=== PATIENT | male | born 1955 | race Hispanic/Latino ===

== ENCOUNTER 2018-09-21 10:17 | Inpatient (IN) | payer MEDICARE, OTHER ==
[~2018-09-21] VITALS: Ht 172.7 cm; Wt 97.1 kg
--- OUTSIDE RECORDS SUMMARY | 2018-09-21 10:20 | XMS REPORT | Clinical Summary ---
Author Author Obi Osheaist Organization [facility] Address Unknown Phone Unavailable Care Team Providers Care Heel Padder Name Role Phone PCP Unavailable Allergies Not on File Medications Not on file Active Problems Not on file Encounters Care Team Description Date Type Specialty 01/13/2018 Clinical Corporate Wellness Support after 09/20/2017 Immunizations Name Dates Previously Given Next Due FLUCELVAX QUAD PF (0.5mL 01/13/2018 syringe) Social History Date Tobacco Use Types Packs/Day Years Used Never Assessed Sex Assigned at Date Recorded Not on file Industry Job Start Date Occupation Not on file Not on file Not on file Travel End Travel History Travel Start No recent travel history available. Last Filed Vital Signs Not on file Plan of Treatment Health Maintenance Due Date Last Done Comments COLONOSCOPY SCREENING 2003 SHINGLES VACCINES (#1) 2003 65+ PNEUMOCOCCAL VACCINE 2018 (1 of 2 - PCV13) INFLUENZA VACCINE 10/30/2018 01/13/2018 Results Not on fileafter 09/20/2017 Insurance Type Payer Benefit Subscriber ID Effective Phone Address Plan / Dates Group HMO/PPO [facility] xxxxxxxxx 2017-P THCARE resent CHOICE/CHO ICE + Advance Directives Patient has advance care planning documents on file. For more information, xu liao contact: Obi Haji [address] [place] [address]
--- OUTSIDE RECORDS SUMMARY | 2018-09-21 10:20 | XMS REPORT ---
Author [facility] Address Unknown Phone Unavailable Care Team Providers Care Transfer Worker Name Role Phone LA NENA TAYLOR Unavailable Unavailable Problems This patient has no known problems. Allergies, Adverse Reactions, Alerts This patient has no known allergies or adverse reactions. Medications This patient has no known medications. Results Test Description Test Time Test Comments Text Results Atomic Results Result Comments RAD, CHEST, 2 VIEWS 2018-06-16 11:37:00 Reason for Exam:->Z13.6 FINAL REPORT PA and Lateral views of the chest dated 06/16/2018 Clinical information: Z13.6 Comment: Heart is normal in size. Pulmonary vasculature is unremarkable. Lungs are clear. No pulmonary infiltrate or pleural effusion is present. Impression: No active cardiopulmonary disease. Signed: Frank Tucker Verified Date/Time: 06/16/2018 11:37:28 Reading Location: [facility] Radiology Reading Room ABDOMEN COMPLETE [facility] [address] [place] [address] Patient Name: ALBA RAMIREZ MR #: [id number] : 1955 Age/Sex: 61/M Req #: [id number] Adm Physician: Ordered by: LA NENA TAYLOR MD Report #: [id number] Location: US Room/Bed: Procedure: [id number] US/US ABDOMEN COMPLETE Exam Date: Exam Time: REPORT STATUS: Signed PROCEDURE: ABDOMINAL ULTRASOUND COMPARISON: None. INDICATIONS: Epigastric Pain FINDINGS: Montelongo scale and color flow Doppler ultrasound of the abdomen was performed. Liver: 15.8 cm span. No discrete mass or intrahepatic bile duct dilatation. Hyperechoic with coarse texture compatible with steatosis. Main portal vein 1.0 cm, normal hepatopedal flow. Spleen: 10.8 cm span, no splenomegaly. Biliary: No cholelithiasis or gallbladder wall thickening. Sonographic Ferreira sign negative. Common bile duct 0.5 cm, non-dilated. Pancreas: Partially obscured. Visualized portions unremarkable. Right kidney: 11.8 x 6.2 x 6.3 cm. No hydronephrosis. Normal cortical echogenicity. There are several hyperechoic foci related to the collecting system measuring up to 8 mm. Two cystic areas are noted measuring up to 1.6 cm containing echogenic foci. Left kidney: 12.9 x 6.5 x 6.5 cm. No hydronephrosis or contour deforming mass. Normal cortical echogenicity. Vessels: Aorta and IVC are partially obscured. Visualized portions unremarkable. Ascites: None CONCLUSION: 1. No cholelithiasis or sonographic evidence for acute cholecystitis. No dilatation of the biliary tree. 2. Echogenic foci in the right kidney may represent nonobstructing intrarenal calculi. There are 2 complicated right renal cysts with apparent calcifications. Correlation with abdominal CT may be helpful to characterize these findings. 3. Hepatic steatosis. Dictated by: Justin Wong M.D. on 12/21/2016 at 9:03 Electronically approved by: Justin Wong M.D. on 12/21/2016 at 9:03 Dictated By: JUSTIN WONG MD 2 Transcribed By: GAMAL on 12/21/16902 COPY TO: LA NENA FOUNTAIN MD
--- OUTSIDE RECORDS SUMMARY | 2018-09-21 10:20 | XMS REPORT | Clinical Summary ---
Author Author BRITTANY [employer] [facility] Address Unknown Phone Unavailable Care Team Providers Care Director Of Premium Seat Sales Name Role Phone Rachid Felix PCP Allergies Not on File Medications Not on file Active Problems Not on file Encounters Care Team Description Date Type Specialty Toney Flores MD Screening for ischemic heart disease 06/16/2018 Hospital Encounter Toney Flores MD Screening for ischemic heart disease (Primary Dx) 05/20/2018 Outside Orders Central Scheduling after 09/20/2017 Social History Date Tobacco Use Types Packs/Day Years Used Never Assessed Sex Assigned at Date Recorded Not on file Industry Job Start Date Occupation Not on file Not on file Not on file Travel End Travel History Travel Start No recent travel history available. Last Filed Vital Signs Not on file Plan of Treatment Not on file Procedures Comments Procedure Name Priority Date/Time Associated Diagnosis XR CHEST 2 VIEWS Routine 06/16/2018 Screening for ischemic 11:23 AM CDT heart disease after 09/20/2017 Results * XR Chest 2 Views (06/16/2018 11:23 AM CDT) Specimen Narrative Performed At FINAL REPORT [facility] PA and Lateral views of the chest dated 06/16/2018 Clinical information: Z13.6 Comment:Heart is normal in size. Pulmonary vasculature is unremarkable. Lungs are clear. No pulmonary infiltrate or pleural effusion is present. Impression:No active cardiopulmonary disease. Signed: Frank Tucker MD Report Verified Date/Time:06/16/2018 11:37:28 Reading Location: [facility] Radiology Reading Room Procedure Note Interface, External Ris In - 06/16/2018 11:39 AM CDT FINAL REPORT PA and Lateral views of the chest dated 06/16/2018 Clinical information: Z13.6 Comment: Heart is normal in size. Pulmonary vasculature is unremarkable. Lungs are clear. No pulmonary infiltrate or pleural effusion is present. Impression: No active cardiopulmonary disease. Signed: Frank Tucker MD Report Verified Date/Time: 06/16/2018 11:37:28 Reading Location: [facility] Radiology Reading Room Performing Organization Address City/State/Zipcode Phone Number GE RIS after 09/20/2017 Insurance Payer Benefit Subscriber ID Type Phone Address Plan / Group [facility] PPO xxxxxxxxx PPO CARE POS CVCP ONLY
[2018-09-21] MEDS ORDERED: SODIUM CHLORIDE 0.9% 1000ML 1,000 ML IV ONE (10:30)
[2018-09-21] MEDS ORDERED: ONDANSETRON HCL INJ 2MG/ML 2ML 2 MG/ML VIAL IV ONE (11:00)
[2018-09-21] MEDS ORDERED: MORPHINE SULFATE INJ 4 MG/ML INJ 1ML IV ONE ×2 (11:00→13:00)
[2018-09-21 12:12] LABS: HEMATOCRIT 40.5 % (38.2-49.6); MEAN CORPUSCULAR HEMOGLOBIN 30.8 pg (28-32); MEAN CORPUSCULAR HGB CONC 35.3 g/dL (31-35); MEAN CORPUSCULAR VOLUME 87.3 fL (81-99); PLATELET COUNT 114 x10e3/uL (140-360); RED BLOOD COUNT 4.64 x10e6/uL (4.3-5.7); RED CELL DISTRIBUTION WIDTH 13.3 % (11.7-14.4)
[2018-09-21 12:17] LABS: ALANINE AMINOTRANSFERASE 35 IU/L (0-55); ALBUMIN 4.4 g/dL (3.5-5.0); ALBUMIN/GLOBULIN RATIO 0.9 (0.8-2.0); ALKALINE PHOSPHATASE 61 IU/L (40-150); ANION GAP 19.7 mmol/L (8-16); BLOOD UREA NITROGEN 8 mg/dL (7-26); BUN/CREATININE RATIO 9 (6-25); CALCIUM 9.5 mg/dL (8.4-10.2); CARBON DIOXIDE 17 mmol/L (22-29); CHLORIDE 104 mmol/L (98-107); CREATININE, SERUM 0.85 mg/dL (0.72-1.25); EST GLOMERULAR FILTRATION RATE > 60 ML/MIN (60-); GLUCOSE 212 mg/dL (74-118); POTASSIUM 3.7 mmol/L (3.5-5.1); SODIUM 137 mmol/L (136-145)
[2018-09-21 12:24] LABS: HEMOGLOBIN 14.3 g/dL (14.0-18.0)
[2018-09-21] MEDS ORDERED: SODIUM CHLORIDE 0.9% 1000ML 2,000 ML IV ONE (13:00)
[2018-09-21] MEDS ORDERED: DICYCLOMINE HCL 20 MG/2 ML VIAL IM ONE (13:00)
[2018-09-21 13:02] LABS: LIPASE 1674 U/L (8-78)
--- NOTE | 2018-09-21 14:18 | Diagnostic Imaging Report ---
EXAMINATION: CT of the abdomen and pelvis with contrast. TECHNIQUE: Spiral CT images of the abdomen and pelvis were performed from the lung bases to the lesser trochanters after the intravenous administration of 100 cc of Isovue 370 and the oral administration of water. Coronal and sagittal reformatted images were obtained. COMPARISON: None. CLINICAL HISTORY:Periumbilical abdominal pain DISCUSSION: ABDOMEN/PELVIS: LOWER THORAX:Linear atelectatic changes in the lingula and posterior left lower lobe. Minimal atherosclerotic calcification of the coronary arteries. HEPATOBILIARY: Mild hepatomegaly measuring 17 cm in the right mid clavicular line. Diffusely decreased attenuation of the hepatic parenchyma compared to the spleen, consistent with steatosis. No focal lesions. No intra or extrahepatic biliary ductal dilation. GALLBLADDER: No radio-opaque stones or sludge. No wall thickening. SPLEEN: No splenomegaly. PANCREAS: Mild peripancreatic fat stranding involving the pancreatic body and tail (for example series 2, image 32-36), with associated mild thickening of the right anterior pararenal fascia (series 2, image 37 and sagittal image 86).. Normal pancreatic parenchymal enhancement. No focal lesions or ductal dilation. ADRENALS: No adrenal nodules. KIDNEYS/URETERS: 8 mm nonobstructing calculus in the left interpolar region (series 2, image 38). 2-3 mm nonobstructing calculus in the right mid to inferior aspect (2, image 43). No ureteral calculi, hydronephrosis or obstruction. Multiple cortical scars are noted in the right kidney, with several punctate cortical calcifications, likely sequela of prior inflammation or infection (for example series 2, image 35). 1.7 cm fluid density simple cyst in the interpolar right kidney (series 2, image 45). Multiple subcentimeter hypodensities in the right kidney, which are too small to characterize but likely represent small cysts. No solid enhancing masses. PELVIC ORGANS/BLADDER: Bladder is unremarkable. Dystrophic calcifications in the prostate. PERITONEUM/RETROPERITONEUM: No free air or fluid. LYMPH NODES: No intra-abdominal, retroperitoneal, pelvic or inguinal lymphadenopathy. VESSELS: The celiac trunk,superior and inferior mesenteric and bilateral renal arteries are patent The portal, superior mesenteric and splenic veins are patent. GI TRACT: No bowel dilation or evidence of obstruction. High density material in the distal ileus may represent ingestion of bismuth containing antacids. Appendix is well identified and normal in caliber. BONES AND SOFT TISSUE: No aggressive lesions. Degenerative disc changes in the lower thoracic and to a lesser degree lumbosacral spine. Facet hypertrophy L4-L5 and L5-S1. Small fat-containing umbilical hernia. IMPRESSION: 1. Findings likely represent mild acute interstitial edematous pancreatitis involving the pancreatic body and tail in the appropriate clinical setting. Correlate with serum lipase. No acute peripancreatic fluid collections or evidence of necrosis. 2. Mild hepatomegaly with diffuse fatty infiltration. 3. Bilateral nonobstructing calculi, as described. No ureteral calculi, hydronephrosis or obstruction. Signed by: Dr. Abel Méndez M.D. on 09/21/2018 2:15 PM
[2018-09-21 14:29] LABS: LYMPHOCYTES % (MANUAL) 17 % (19-48); MONOCYTES % (MANUAL) 3 % (3.4-9.0); NEUTROPHILS % (MANUAL) 80 % (40-74)
[2018-09-21 14:30] LABS: PLATELET ESTIMATE SLIGHTLY DECREASED; PLATELET MORPHOLOGY COMMENT NORMAL; RBC MORPHOLOGY COMMENT NORMAL
[2018-09-21] MEDS ORDERED: SODIUM CHLORIDE 0.9% 1000ML 1,000 ML IV SCH (15:04)
[2018-09-21] MEDS ORDERED: SODIUM CHLORIDE FLUSH 10 ML SYR INJ PRN (15:15)
[2018-09-21] MEDS ORDERED: ONDANSETRON HCL INJ 2MG/ML 2ML 2 MG/ML VIAL IV PRN (15:15)
--- OUTSIDE RECORDS SUMMARY | 2018-09-21 15:21 | XMS REPORT | Clinical Summary ---
Author Author Obi Osheaist Organization [facility] Address Unknown Phone Unavailable Care Team Providers Care Paper Steamer Name Role Phone PCP Unavailable Allergies Not [...] Phone Address Plan / Dates Group HMO/PPO [facility] xxxxxxxxx 2017-P THCARE resent CHOICE/CHO ICE + Advance Directives Patient has advance care planning documents on file. For more information, xu liao contact: Obi Haji [address] [place] [address]
--- OUTSIDE RECORDS SUMMARY | 2018-09-21 15:21 | XMS REPORT | Clinical Summary ---
Author Author BRITTANY [employer] Organization [email or web address] Address Unknown Phone Unavailable Care Team Providers Care Collections Analyst Name Role Phone Rachid Felix PCP Allergies [...] CDT) Specimen Narrative Performed At FINAL REPORT [facility] PA and Lateral views of the chest dated 06/16/2018 Clinical information: Z13.6 Comment:Heart is normal in size. Pulmonary vasculature is unremarkable. Lungs are clear. No pulmonary infiltrate or pleural effusion is present. Impression:No active cardiopulmonary disease. Signed: Frank Tucker MD Report Verified Date/Time:06/16/2018 11:37:28 Reading Location: [facility] Radiology Reading Room Procedure Note Interface, External [...] 11:37:28 Reading Location: [facility] [place] Radiology Reading Room Performing Organization Address City/State/Zipcode Phone Number GE RIS after 09/20/2017 Insurance Payer Benefit Subscriber ID Type Phone Address Plan / Group [facility] SHELL PPO xxxxxxxxx PPO CARE POS CVCP ONLY
--- NOTE | 2018-09-21 15:23 | NUR ---
DR. ADAMES AT BEDSIDE, UPDATING PATIENT ON RESULTS AND LETTING HIM KNOW HE WILL BE ADMITTED
--- NOTE | 2018-09-21 15:29 | NUR ---
REPORT TO NATALIE Ashraf
--- NOTE | 2018-09-21 15:30 | NUR ---
REPORT RECEIVED FROM MELA BYRD. PT RESTING IN BED BREATHING EVEN/UNLABORED, NAD NOTED, DENIES PAIN AT THIS TIME, STATES "THAT BENTYL SHOT REALLY HELPED". NO NEEDS VOICED AT THIS TIME. UPDATED ON PLAN OF CARE AND AWAITING BED FOR ADMISSION. PT VERBALIZES UNDERSTANDING ON PLAN OF CARE AT THIS TIME.
[2018-09-21] MEDS ORDERED: MORPHINE SULFATE INJ 4 MG/ML INJ 1ML IV PRN (16:00)
[2018-09-21 17:00] VITALS: BP 139/71
[2018-09-21 17:36] VITALS: BP 139/71
[2018-09-21] MEDS: FAMOTIDINE 20 MG/2 ML VIAL IV SCH (17:55)
[2018-09-21] MEDS ORDERED: NORVASC5 MG PO (18:02)
[2018-09-21] MEDS ORDERED: RAMIPRIL5 MG PO (18:02)
[2018-09-21] MEDS ORDERED: IOPAMIDOL 370 MG/ML 200 ML INFUS..BTL INJ ONE (18:18)
[2018-09-21] MEDS ORDERED: SODIUM CHLORIDE 0.9% 50ML 50 ML ONE (18:19)
--- NOTE | 2018-09-21 19:00 | NUR ---
patient received awake, alert, lying quietly in bed. ivf continue to infuse without difficulty. pm assessment complete. patient instructed to call for assistance when needed.
--- NOTE | 2018-09-21 19:20 | NUR ---
patient medicated with morphine 4mg and zofran 4mg ivp for c/o abd pain 10/08 at this time.
[2018-09-21 19:30] VITALS: BP 132/81
[2018-09-21 20:55] VITALS: BP 132/81
[2018-09-21] MEDS: SODIUM CHLORIDE 0.9% 1000ML 1,000 ML IV SCH (23:44)
[2018-09-22] VITALS (8 sets, daily range): BP systolic 134–141; BP diastolic 61–81
[2018-09-22] MEDS: SODIUM CHLORIDE 0.9% 1000ML 1,000 ML IV SCH ×5 (04:54→21:10)
--- NOTE | 2018-09-22 06:00 | NUR ---
patient appears to be resting quietly. no further c/o pain noted throughout the night. ivf continue to infuse without difficulty.
[2018-09-22 06:22] LABS: BASOPHILS % 0.3 % (0.0-1.0); EOSINOPHILS % 0.3 % (0.0-6.0); HEMATOCRIT 38.6 % (38.2-49.6); HEMOGLOBIN 13.1 g/dL (14.0-18.0); LYMPHOCYTES % 18.9 % (18.0-39.1); MEAN CORPUSCULAR HEMOGLOBIN 30.5 pg (28-32); MEAN CORPUSCULAR HGB CONC 33.9 g/dL (31-35); MONOCYTES # (AUTO) 0.5 (0.2-0.8); MONOCYTES % 5.2 % (4.4-11.3); NEUTROPHILS # (AUTO) 7.8 (2.1-6.9); PLATELET COUNT 141 x10e3/uL (140-360); RED BLOOD COUNT 4.29 x10e6/uL (4.3-5.7); RED CELL DISTRIBUTION WIDTH 13.8 % (11.7-14.4)
[2018-09-22 06:43] LABS: ALANINE AMINOTRANSFERASE 26 IU/L (0-55); ALBUMIN 3.3 g/dL (3.5-5.0); ALBUMIN/GLOBULIN RATIO 1.1 (0.8-2.0); ALKALINE PHOSPHATASE 48 IU/L (40-150); ANION GAP 12.8 mmol/L (8-16); BLOOD UREA NITROGEN 6 mg/dL (7-26); BUN/CREATININE RATIO 6 (6-25); CALCIUM 8.5 mg/dL (8.4-10.2); CARBON DIOXIDE 22 mmol/L (22-29); CHLORIDE 108 mmol/L (98-107); CHOLESTEROL 127 MD/DL (0-199); CREATININE, SERUM 0.99 mg/dL (0.72-1.25); EST GLOMERULAR FILTRATION RATE > 60 ML/MIN (60-); GLUCOSE 124 mg/dL (74-118); HDL CHOLESTEROL 21 MG/DL (40-60); MAGNESIUM 1.6 MG/DL (1.3-2.1); POTASSIUM 3.8 mmol/L (3.5-5.1); SODIUM 139 mmol/L (136-145); TRIGLYCERIDES 512 MG/DL (0-149)
--- NOTE | 2018-09-22 06:56 | NUR ---
RECEIVED PATIENT RESTING IN BED. RESPIRATIONS EVEN AND UNLABORED, NO ACUTE DISTRESS NOTED. DENIES PAIN OR DISCOMFORT. CALL LIGHT WITHIN REACH. BED IN THE LOWEST POSITION.
[2018-09-22 07:37] LABS: AMYLASE 401 U/L (25-125); LIPASE 1091 U/L (8-78)
[2018-09-22] MEDS: FAMOTIDINE 20 MG/2 ML VIAL IV SCH ×2 (08:28→17:10)
[2018-09-22] MEDS ORDERED: FENTANYL CITRATE/PF 100MCG/2 ML INJ ONE (10:52)
--- NOTE | 2018-09-22 18:50 | NUR ---
REPORT GIVEN TO ONCOMING NURSE, WALKING ROUNDS DONE. PATIENT IS RESTING IN BED. NO ACUTE DISTRESS NOTED. NO PAIN NOTED AT THIS TIME. FAMILY MEMBER AT BEDSIDE. CALL LIGHT WITHIN REACH. BED IN THE LOWEST POSITION.
--- NOTE | 2018-09-22 19:00 | NUR ---
patient received awake, alert, lying quietly in bed. no c/o pain noted at this time. ivf continue to infuse without difficulty. patient requesting food. patient instructed of npo status and the reason for it. patient verbalizes understanding of this. pm assessment complete. noted at the bedside. patient/ instructed to call for assistance when needed.
[2018-09-23] VITALS (9 sets, daily range): BP systolic 124–180; BP diastolic 66–92
[2018-09-23] MEDS: SODIUM CHLORIDE 0.9% 1000ML 1,000 ML IV SCH ×6 (01:20→22:29)
--- NOTE | 2018-09-23 06:50 | NUR ---
RECEIVED PATIENT RESTING IN BED. NO ACUTE DISTRESS NOTED. DENIES PAIN OR DISCOMFORT AT THIS TIME. CALL LIGHT WITHIN REACH. BED IN THE LOWEST POSITION.
[2018-09-23] MEDS: FAMOTIDINE 20 MG/2 ML VIAL IV SCH ×2 (07:52→16:02)
--- NOTE | 2018-09-23 14:54 | NUR ---
DISCUSSED IN BARRIER ROUNDS, AMI AND LIPASE DECREASING PLAN IS TO CONTINUE CARE UNTIL IN NORMAL RANGE. LIVES AT HOME WITH DEE WOLFE [phone]
--- NOTE | 2018-09-23 19:21 | NUR ---
REPORT GIVEN TO ONCOMING NURSE, WALKING ROUNDS DONE. PATIENT IS RESTING IN BED. NO ACUTE DISTRESS NOTED. NO S/S OF PAIN NOTED AT THIS TIME. CALL LIGHT WITHIN REACH. BED IN THE LOWEST POSITION.
--- NOTE | 2018-09-23 20:55 | NUR ---
PATIENT CONDITION STABLE WITHOUT RESPIRATORY DISTRESS, HE DENIES ABDOMINAL PAIN. HE HAS A HISTORY OF DIABETES, BLOOD SUGAR ASSESSED SINCE THE HE'S IS ON NPO STATUS, READING WAS 89. WILL NOTIFY DR Kodi BOYCE WHEN HE MAKES ROUNDS TO SEE IF HE WANTS TO CHANGE THE IV FLUID.
--- NOTE | 2018-09-23 23:56 | NUR ---
DR Kodi BOYCE SAW THE PATIENT, HE WAS MADE AWARE THAT THE PATIENT'S BLOOD SUGAR READING WAS 89 AND HE'S ON NPO STATUS. ORDER RECEIVED TO CHANGE THE IV FLUID TO D5LR AT A RATE OF 125ML/HR.
[2018-09-24] VITALS (7 sets, daily range): BP systolic 136–158; BP diastolic 74–87
[2018-09-24] MEDS: DEXTROSE 5%/LACTATED RINGERS 1,000 ML IV SCH ×2 (00:17→19:30)
--- NOTE | 2018-09-24 03:13 | NUR ---
WALKING ROUNDS MADE, PATIENT OBSERVED SOUNDLY ASLEEP WITHOUT DISTRESS.
[2018-09-24 06:04] LABS: AMYLASE 121 U/L (25-125); LIPASE 251 U/L (8-78)
[2018-09-24] MEDS: FENOFIBRATE 145 MG TAB PO SCH (06:18)
--- NOTE | 2018-09-24 07:20 | NUR ---
REC'D PATIENT AAOX3, ON ROOM AIR, NO S/S OF DISTRESS. D5 LR RUNNING AT 125 ML/HR, RIGHT AC 20 GAUGE IS CLEAN AND INTACT. SIDE RAILS UPX2, CALL HERNANDEZ WITHIN REACH, AND BED IN LOWEST POSITION.
[2018-09-24] MEDS: FAMOTIDINE 20 MG/2 ML VIAL IV SCH (08:43)
--- NOTE | 2018-09-24 16:08 | NUR ---
Nutrition Screen Note RD Recommendation for Physician: -Advance diet as tolerated to low fat/ cardiac diet Plan of Care: RD following, monitoring for tolerance and adequacy, diet education Nutrition reason for involvement: MD Consult elevated TG Primary Diagnose(s): Acute pancreatitis PMH: CAD, HTN Ht: 68in Wt:215.13lb BMI: 32.7kg/m2 IBW: 154lb RD Assessment: (09/24) Chart reviewed. Labs and meds reviewed. 63yo M, who was admitted for pancreatitis. Lipase has trend down. TG at 306. Visited pt in the room. Pt tolerating clear liquid diet. No complains of nausea or vomiting. Normal BM. Pt denies any chewing or swallowing difficulty. RD provided education on low fat diet and pt was agreeable. All questions have been answered. Current Diet: clear liquid diet Malnutrition Evaluation (09/24/2018) The patient does not meet criteria for a specified degree of malnutrition at this time. Will re-evaluate at follow-up as appropriate. Diet Education Needs Assessment: Diet education indicated, pt was agreeable. Learner(s): pt Time spent: 45minutes Barriers: physical inactivity Cultural/Language Modifications: No cultural/language modifications noted. Pt speaks Azeri. Readiness: eager Method: explanation/ discussion, handout Topics: pancreatitis/ low fat diet therapy Understanding/Compliance: Expect good understanding/compliance from pt. Will benefit from reinforcement. All questions have been answered. Nutrition Care Level: low Signed: Ashley Graves, MS, RD, LD
[2018-09-24] MEDS ORDERED: ONDANSETRON HCL 4 MG ORAL DISINTEGRATING TAB PO PRN (16:45)
--- NOTE | 2018-09-24 18:23 | NUR ---
PATIENT IS SITTING AT THE EDGE OF THE BED. NO S/S OF DISTRESS. CALL HERNANDEZ WITHIN REACH, BED IN LOWEST POSITION, AND SIDE RAILS UP X2.
--- NOTE | 2018-09-24 19:20 | NUR ---
Patient visited in room during nursing rounds. Patient alert and oriented x3. No distress or discomfort noted. On IVF (D5LR at 125ml/hr). Pt ambulatory in room prn. On clear liquid diet. Pt states he wants to go home tomorrow. Call grider within reach. Will monitor closely.
[2018-09-24] MEDS: FAMOTIDINE 20 MG TAB PO SCH (21:18)
--- NOTE | 2018-09-24 22:00 | NUR ---
Spoke with Dr. Gennaro Hugo on the phone to report about dietary recommendation of advancing patient's diet as tolerated to low fat/cardiac diet. MD aware and stated to keep pt clear liquid diet for now since last lipase level still elevated. MD stated if lipase level normalizes tomorrow (09/25/18), diet will be advanced to soft diet.
[2018-09-25] VITALS: BP 130/67
--- NOTE | 2018-09-25 | NUR ---
Dr. Gennaro Hugo came and visited pt in room. MD aware of pt condition and informed pt of plan of care. Pt still on Clear liquid diet at this time.
[2018-09-25] MEDS: DEXTROSE 5%/LACTATED RINGERS 1,000 ML IV SCH ×3 (03:31→15:34)
[2018-09-25 04:00] VITALS: BP 132/74
[2018-09-25] MEDS: FENOFIBRATE 145 MG TAB PO SCH (05:46)
[2018-09-25 07:19] LABS: LIPASE 139 U/L (8-78); TRIGLYCERIDES 187 MG/DL (0-149)
[2018-09-25 07:51] VITALS: BP 138/78
[2018-09-25] MEDS: FAMOTIDINE 20 MG TAB PO SCH (08:34)
--- NOTE | 2018-09-25 09:00 | NUR ---
The pt. was received in bed awake alert and oriented times 4. He denies pain or discomfort at this time and diet change is pending morning labs. Amylase lipase continues to trend downwards and the pt. allowed diet change.
[2018-09-25 15:57] VITALS: BP 159/77
--- NOTE | 2018-09-25 16:14 | NUR ---
CM MET W THE PT AT THE BEDSIDE. PT ASKED IF HE COULD DC AFTER DINNER IF HE TOLERATES IT WELL. CM WILL INFORM BEDSIDE NURSE;
--- NOTE | 2018-09-25 16:28 | NUR ---
The pt. reports that his spouse is going out of town tomorrow and he will not have a ride home. He requests that the drIvana be called for discharge order from the drIvana's.
--- NOTE | 2018-09-25 19:12 | NUR ---
Patient visited in room during nursing rounds. Patient aware he's being discharged as per order from Dr. Gennaro Hugo and Dr. Alcantara. Patient signed discharge papers and agree to plan to follow up with Dr. Gennaro Hugo in 2 weeks.
--- NOTE | 2018-09-25 19:20 | NUR ---
Patient escorted downstairs. Patient left unit in stable condition and denies any pain or discomfort. Patient went home via private vehicle with (Jazz).
--- NOTE | 2018-09-27 04:02 | Discharge Summary ---
DISCHARGE DIAGNOSES: 1. Acute pancreatitis. 2. Hypertriglyceridemia. HISTORY OF PRESENT ILLNESS: The patient is a 63-year-old gentleman, who presented with abdominal pain, severe in nature, where he was found on CT scan as well as laboratory data to have acute pancreatitis. So, he was brought in and placed on IV fluids, n.p.o. status, where he made daily improvements both in exam as well as in his chemistries. Laboratory data reviewed. Triglycerides in the 600 range. So, he was started on some triglyceride medicine. At Discharge his triglycerides were around 300. Over 24 hours prior to discharge, he was able to ambulate well. He has had very good pain control and also was able to tolerate initially a clear liquid diet and then a soft diet without any issues. The patient was discharged home to follow up with his PCP, Dr. Felix in 2 weeks and continue low-fat diet and getting his triglycerides under control. Please see hospital chart for full details. MD ALVINA Lee/EFRAIN /[id number] cc: Rachid Felix MD
== END 2018-09-25 19:33 | disposition home or self-care (01) | DRG 440 ==
LOC: ER 10:17 → ERHOLD 15:17 → MED/SURG3 17:03
PROVIDERS: ADMIT Internal Medicine; ATTEND Internal Medicine
DX: K85.80 Other acute pancreatitis without necrosis or infection (principal); E78.1 Pure hyperglyceridemia; I10 Essential (primary) hypertension; E11.9 Type 2 diabetes mellitus without complications; K76.0 Fatty (change of) liver, not elsewhere classified; G47.30 Sleep apnea, unspecified; Z82.49 Family history of ischemic heart disease and other diseases of the circulatory system; K21.9 Gastro-esophageal reflux disease without esophagitis; E66.9 Obesity, unspecified; Z68.32 Body mass index [BMI] 32.0-32.9, adult
CPT/HCPCS: 36415; 74177; 80053; 80061; 82150; 82948; 83036; 83690; 83735; 84100; 84478; 84484; 85007; 85025; 85027; 93005; 99284; J0500; J2270; J2405; J3010; J7030; Q9967

== ENCOUNTER → 2020-05-03 | Day surgery (SDC) | payer MEDICARE, OTHER ==
[~2020-05-03] MED LIST: NORVASC5 MG PO; OR PHACO EYE KIT ONE; PREOP PHACO EYE KIT ONE; RAMIPRIL5 MG PO; TRICOR145 MG PO; VITAMIN D PO
[2020-05-03 13:35] VITALS: BP 135/91
== END | disposition home or self-care (01) ==
LOC: OR 09:59
PROVIDERS: ATTEND Ophthalmology
DX: H25.12 Age-related nuclear cataract, left eye (principal); G47.33 Obstructive sleep apnea (adult) (pediatric); I25.10 Atherosclerotic heart disease of native coronary artery without angina pectoris; I10 Essential (primary) hypertension; E78.5 Hyperlipidemia, unspecified; Z01.812 Encounter for preprocedural laboratory examination; Z20.822 Contact with and (suspected) exposure to COVID-19
CPT/HCPCS: 66984; U0002; V2632

== ENCOUNTER → 2020-05-31 | Day surgery (SDC) | payer MEDICARE ==
[2020-05-26 08:41] LABS: BASOPHILS % 0.7 % (0.0-1.0); EOSINOPHILS # (AUTO) 0.1 (0.0-0.4); EOSINOPHILS % 0.9 % (0.0-6.0); HEMATOCRIT 42.8 % (38.2-49.6); HEMOGLOBIN 14.2 g/dL (14.0-18.0); LYMPHOCYTES % 36.2 % (18.0-39.1); MEAN CORPUSCULAR HEMOGLOBIN 30.1 pg (28-32); MEAN CORPUSCULAR HGB CONC 33.2 g/dL (31-35); MEAN CORPUSCULAR VOLUME 90.7 fL (81-99); MONOCYTES # (AUTO) 0.3 (0.2-0.8); MONOCYTES % 6.3 % (4.4-11.3); NEUTROPHILS % 55.7 % (38.7-80.0); PLATELET COUNT 183 x10e3/uL (140-360); RED BLOOD COUNT 4.72 x10e6/uL (4.3-5.7); RED CELL DISTRIBUTION WIDTH 13.4 % (11.7-14.4)
[~2020-05-31] MED LIST changes: +FENTANYL CITRATE/PF 100MCG/2 ML INJ ONE; +MIDAZOLAM HCL 2 MG/2 ML VIAL ONE
[2020-05-31 13:10] VITALS: BP 124/87
== END | disposition home or self-care (01) ==
LOC: OR 09:15
PROVIDERS: ATTEND Ophthalmology
DX: H25.11 Age-related nuclear cataract, right eye (principal); G47.33 Obstructive sleep apnea (adult) (pediatric); I10 Essential (primary) hypertension; E78.5 Hyperlipidemia, unspecified; H91.93 Unspecified hearing loss, bilateral; Z01.812 Encounter for preprocedural laboratory examination; Z20.822 Contact with and (suspected) exposure to COVID-19; Z87.891 Personal history of nicotine dependence
CPT/HCPCS: 36415; 66984; 85025; J2250; J3010; U0002 ×2; V2632